=== PATIENT | male | born 1960 | race Caucasian/White ===

== ENCOUNTER 2016-06-15 12:07 | Inpatient (IN) | payer MEDICARE, OTHER ==
--- NOTE | 2016-06-15 12:38 | ED Physician Chart ---
Chief Complaint/HPI - Patient Information Date Seen:: 06/15/16 Time Seen:: 12:30 Chief Complaint:: New onset of delusion and aggressive behavior. History of Present Illness:: Brought in by ambulance from nursing facility because pt has been noticed to have delusion and aggressive behavior towards staff. Pt feels well and denies any bodily pain or discomfort. Pt has flight of ideas and delusional thoughts. He is not fully cooperative; thus, H & P are limited. Allergies:: Allergies Allergy/AdvReac Type Severity Reaction Status Date / Time No Known Allergies Allergy Verified 06/15/16 12:33 Vitals:: see Nurse Note. Historian:: Patient, Medical Records (from transferring facility.) Family MD/PCP:: Dr. Rob/Dr. Mann LMP:: N/A Review:: Nurse's Note Reviewed, Transfer documents Reviewed Review of Systems - Review of Systems General/Constitutional: Other (Pt does not cooperate for ROS.) Past Medical History - Past Medical History Past Medical History: HTN, Dyslipidemia, PUD/GERD Family History: Other (Pt does not cooperate to provide reliable info on FHx.) Social History: Care Facility, Other (Pt does not cooperate to provide reliable info on SHx.) Surgical History: other (Intestinal ) Psychiatricy History: Schizophrenia, Bipolar Medication: Reviewed Physical Exam - Physical Examination General/Constitutional: Awake, Well-developed, well-nourished, Alert, No distress, Non-toxic appearing, Ambulatory Other Gen/Cons comments:: Breathes comfortably, speaks clearly with flights of ideas. Pt is not in any physical distress. Head: Atraumatic Eyes: Lids, conjuctiva normal, PERRL, EOMI Skin: No ecchymosis, Well hydrated, No lymphadenopathy Other Skin comments:: see also Abdominal exam below. ENMT: External ears, nose nl, TM canals nl, Nasal exam nl, Lips, teeth, gums nl , Oropharynx nl, Tonsils nl Neck: Nontender, Full ROM w/o pain, No JVD, No nuchal rigidity, No mass, No stridor Respiratory: Nl effort/Exclusion, Clear to Auscultation, No Wheeze/Rhonchi/Rales Cardio Vascular: RRR, No murmur, gallop, rubs, NL S1 S2 GI: No tenderness/rebounding/guarding, No organomegaly, No hernia, Normal BS's, Nondistended, No mass/bruits, No McBurney tenderness Other GI comments:: Abdomen is obese but soft. There is a well healed longitudinal surgical scar at midline extending from upper to lower abdomen. Erythema with warmth noticed extending bilaterally about 5 cm. No crepitus. No open wound or exudate. : No CVA tenderness Extremities: No edema Neuro/Psych: Alert/oriented (knows his name, that he is in hospital and it is May 2016. Spontaneous movements noticed in all 4 extremities. Pt does not cooperate for full neurological exam.), DTR's symmetric, Normal sensory exam, Normal motor strength, Judgement/insight normal, Mood normal, Normal gait, No focal deficits ED Septic Shock - . Is Septic Shock (SBP<90, OR Lactate>4 mmol\L) present?: No Reassessment (Disposition) - Reassessment Reassessment:: 1300 Pt has been uncooperative. He refused IV, blood draw, and antibiotic. Dr. Dasilva called and discussed with me at about 1255. He will admit pt to [facility] under his care. He will have work up and treatment done in the [facility]. - Diagnosis Diagnosis:: Cellulitis in abdomen. H/O Bipolar disorder and schizoaffective disorder with delusion and aggressive behavior. - Patient Disposition Admitted to:: Med/Surg Admitting Medical Physician:: Michael Dasilva Time:: 13:05 Condition at Disposition:: Stable
[2016-06-15 15:21] LABS: URINE BILIRUBIN NEGATIVE (NEGATIVE); URINE BLOOD NEGATIVE (NEGATIVE); URINE COLOR STRAW; URINE GLUCOSE (UA) NEGATIVE (NEGATIVE); URINE KETONE NEGATIVE (NEGATIVE); URINE PROTEIN NEGATIVE (NEGATIVE); URINE UROBILINOGEN 0.2 E.U./dL (0.2 - 1.0)
[2016-06-15 15:22] LABS: URINE BACTERIA NONE SEEN /hpf (NONE SEEN); URINE EPITHELIAL CELLS NONE SEEN /lpf (FEW); URINE RBC NONE SEEN /hpf (0-5); URINE WBC NONE SEEN /hpf (0-5)
[2016-06-15] MEDS ORDERED: Vancomycin HCl 1.5 GM in Sodium Chloride 0.9% 500 ML IV ONE (18:00)
[2016-06-15] MEDS ORDERED: HALOPERIDOL DECANOATE IM SCH (20:15)
[2016-06-15] MEDS ORDERED: Levofloxacin 500mg/100mL Premix Bag IV ONE (20:45)
[2016-06-16] MEDS ORDERED: Non-Formulary Item 1 EA (Amino Acids/Protein Hydrolys [Pro-Stat Awc Liquid] 30 ML) PO SCH (09:00)
[2016-06-16] MEDS: Aspirin 81mg Chewable Tab PO SCH (11:26)
[2016-06-16] MEDS: Multivitamin w/ Minerals Tab PO SCH (11:27)
--- NOTE | 2016-06-16 13:06 | Internal Medicine Prog Note ---
Internal Medicine Subjective - Subjective Service Date: 06/16/16 ([facility] [id number]) Internal Medicine Objective - Results Recent Labs: Laboratory Last Values Urine Source CLEAN C 06/15/16 14:35 Urine Color STRAW 06/15/16 14:35 Urine Clarity CLEAR (CLEAR) 06/15/16 14:35 Urine pH 7.0 06/15/16 14:35 Ur Specific [place] 1.015 (1.005-1.030) 06/15/16 14:35 Urine Protein NEGATIVE mg/dL (NEGATIVE) 06/15/16 14:35 Urine Glucose (UA) NEGATIVE mg/dL (NEGATIVE) 06/15/16 14:35 Urine Ketones NEGATIVE mg/dL (NEGATIVE) 06/15/16 14:35 Urine Blood NEGATIVE (NEGATIVE) 06/15/16 14:35 Urine Nitrate NEGATIVE (NEGATIVE) 06/15/16 14:35 Urine Bilirubin NEGATIVE (NEGATIVE) 06/15/16 14:35 Urine Urobilinogen 0.2 E.U./dL (0.2 - 1.0) 06/15/16 14:35 Ur Leukocyte Esterase NEGATIVE (NEGATIVE) 06/15/16 14:35 Urine RBC NONE SEEN /hpf (0-5) 06/15/16 14:35 Urine WBC NONE SEEN /hpf (0-5) 06/15/16 14:35 Ur Epithelial Cells NONE SEEN /lpf (FEW) 06/15/16 14:35 Urine Bacteria NONE SEEN /hpf (NONE SEEN) 06/15/16 14:35 - Physical Exam Vitals and I&O: Vital Signs Temp 98 F 06/16/16 08:00 Pulse 85 06/16/16 08:00 Resp 18 06/16/16 08:00 BP 129/82 06/16/16 08:00 Pulse Ox 100 06/16/16 08:00 Intake & Output 06/15/16 06/16/16 06/16/16 18:59 06:59 18:59 Intake Total 600 920 Balance 600 920 Intake: Oral 600 920 Other: # Voids 4 4 # Bowel Movements 1 Active Medications: Current Medications Acetaminophen (Tylenol) 650 mg PO Q6H PRN PRN Reason: mild pain Stop: 08/14/16 20:02 Ascorbic Acid (Vitamin C) 500 mg PO DAILY PREM Stop: 08/15/16 08:59 Last Admin: 06/16/16 11:26 Dose: Not Given Aspirin (Aspirin Chewable) 81 mg PO DAILY [facility] Stop: 08/15/16 08:59 Last Admin: 06/16/16 11:26 Dose: Not Given Atorvastatin Calcium (Lipitor) 10 mg PO HS PREM PRN Reason: Protocol Stop: 08/14/16 20:59 Benzonatate (Tessalon) 200 mg PO TID PRN PRN Reason: Cough Benztropine Mesylate (Cogentin) 0.5 mg PO BID [facility] Stop: 08/15/16 08:59 Last Admin: 06/16/16 11:26 Dose: Not Given Carvedilol (Coreg) 3.125 mg PO BID PREM Stop: 08/15/16 08:59 Last Admin: 06/16/16 11:26 Dose: Not Given Divalproex Sodium (Depakote Dr) 500 mg PO BID PREM PRN Reason: Protocol Stop: 08/15/16 08:59 Last Admin: 06/16/16 11:27 Dose: Not Given Docusate Sodium (Colace) 100 mg PO DAILY [facility] Stop: 08/15/16 08:59 Last Admin: 06/16/16 11:27 Dose: Not Given Haloperidol (Haldol) 5 mg PO BID PREM PRN Reason: Protocol Stop: 08/15/16 08:59 Levofloxacin (Levaquin Pb) 500 mg in 100 mls @ 100 mls/hr IV Q24HR [facility] Stop: 08/15/16 20:59 Miscellaneous (Vancomycin Iv Per Pharmacy) 1 ea MC PRN [facility] Stop: 08/14/16 13:14 Miscellaneous (Haloperidol Decanoate [Haloperidol Decanoate]) 1 ml IM QMONTH [facility] Stop: 08/14/16 20:14 Miscellaneous (Amino Acids/Protein Hydrolys [Pro-Stat Awc Liquid]) 30 ml PO DAILY [facility] Stop: 08/15/16 08:59 Nitroglycerin (Nitrostat) 0.4 mg SL Q5MIN PRN PRN Reason: Chest Pain Stop: 08/14/16 20:02 Zinc Sulfate (Zinc Sulfate) 220 mg PO DAILY [facility] Stop: 08/15/16 08:59 Last Admin: 06/16/16 11:27 Dose: Not Given Internal Medicine Assmt/Plan - Assessment Assessment: ABDOMINAL CELLULITIS HTN DYSLIPIDEMIA GERD
[2016-06-16] MEDS ORDERED: Haloperidol Lactate 5 mg/mL 1mL Vial IM ONE (14:00)
--- NOTE | 2016-06-16 16:53 | History & Physical ---
CHIEF COMPLAINT: Aggressive behavior, abdominal wound infection and agitation. HISTORY OF PRESENT ILLNESS: This is a 56-year-old male who is a resident of [facility] who is brought here to [facility] for reports of abdominal wound infection and agitation. The patient did not have any fevers at the [facility]. The patient is a very poor historian. PAST MEDICAL HISTORY: Hypertension, dyslipidemia, GERD. SOCIAL HISTORY: The patient resides at [facility], requiring 24-hour nursing care. ALLERGIES: No known allergies. PAST SURGICAL HISTORY: Intestinal bypass. MEDICATIONS: Please see medication reconciliation sheet. REVIEW OF SYSTEMS: Unable to obtain, patient is confused. PHYSICAL EXAMINATION: GENERAL: The patient is well developed and well nourished, confused in no apparent distress. VITAL SIGNS: Temperature 98, heart rate 85, blood pressure 129/82, respirations 18 and O2 100%. HEENT: Head normocephalic atraumatic. NECK: Supple. No mass. LUNGS: Clear bilateral to auscultation. HEART: Regular rate and rhythm. No murmurs or gallops. SKIN: Intact, warm and dry to touch. ABDOMEN: Soft, nontender and nondistended. Positive bowel sounds in all 4 quadrants. LABORATORY DATA: Currently attending. The patient had a urinalysis done and it was negative for any UTI. ASSESSMENT: 1. Abdominal wound infection. 2. Agitation. 3. Peptic ulcer disease. 4. Gastroesophageal reflux disease. 5. Dyslipidemia. PLAN: To be admitted to the med/surg unit. The patient will have a consultation with Dr. Mann and also wound care as well. CBC and BMP will be monitored. The patient will be kept on IV antibiotics of Levaquin and vancomycin as well. As soon as the patient is medically stable, the patient to be transferred to Geropsych Unit. JOB# [id number]
[2016-06-16] MEDS ORDERED: Levofloxacin 500mg/100mL 500 MG/100 ML BAG IV SCH (21:00)
[2016-06-16] MEDS: Atorvastatin Calcium 10 MG TAB PO SCH ×2 (21:05→21:32)
--- NOTE | 2016-06-17 02:23 | Consultation ---
The patient was seen, chart reviewed and discussed with staff. HISTORY OF PRESENT ILLNESS: The patient is a 56-year-old male with a history of schizophrenia, known to myself from prior treatment at this facility, was sent for increased confusion, agitation, changes in mental status, is currently on medical floor. The patient has been refusing care for no apparent reason. The patient is confused. He is saying he is 6-year-old and having some anger outbursts. The patient did not give a reason why is not taking medications. PAST PSYCHIATRIC HISTORY: Multiple psychiatric hospitalizations, chronic history of mental illness. PAST MEDICAL HISTORY: As per H and P. The patient's ____ also ER record was reviewed. Cellulitis in abdomen. MENTAL STATUS EXAMINATION: The patient was restless, paranoid, suspicious, internally preoccupied, speech is pressured. He is oriented to person, knew he was in the hospital. Knew the date, but his insight is very poor. Thought he was 6 years old. No suicidal or homicidal thoughts, but the patient is highly agitated. ASSESSMENT: Schizoaffective disorder, psychotic phase. PLAN: We will encourage the patient to comply with treatment and with his medications. The patient is receiving Haldol Decanoate and also he is on Haldol 5 twice a day and Depakote 500 mg twice a day. We will monitor closely. The patient will benefit from psychiatric hospitalization given the severity of his mental illness and his delusions. Thank you for the consultation. [facility]# [id number]
[2016-06-17] MEDS: Aspirin 81mg Chewable Tab PO SCH (09:07)
[2016-06-17] MEDS: Multivitamin w/ Minerals Tab PO SCH (09:09)
--- NOTE | 2016-06-17 13:21 | Internal Medicine Prog Note ---
Internal Medicine Subjective - Subjective Patient seen and examined:: with staff, chart reviewed Patient is:: awake, verbal, interactive, in bed, denies CP Patient Complaints of:: congestion Per staff patient is:: noncompliant, confused Internal Medicine Objective - Results Recent Labs: Laboratory Last Values Urine Source CLEAN C 06/15/16 14:35 Urine Color STRAW 06/15/16 14:35 Urine Clarity CLEAR (CLEAR) 06/15/16 14:35 Urine pH 7.0 06/15/16 14:35 Ur Specific [place] 1.015 (1.005-1.030) 06/15/16 14:35 Urine Protein NEGATIVE mg/dL (NEGATIVE) 06/15/16 14:35 Urine Glucose (UA) NEGATIVE mg/dL (NEGATIVE) 06/15/16 14:35 Urine Ketones NEGATIVE mg/dL (NEGATIVE) 06/15/16 14:35 Urine Blood NEGATIVE (NEGATIVE) 06/15/16 14:35 Urine Nitrate NEGATIVE (NEGATIVE) 06/15/16 14:35 Urine Bilirubin NEGATIVE (NEGATIVE) 06/15/16 14:35 Urine Urobilinogen 0.2 E.U./dL (0.2 - 1.0) 06/15/16 14:35 Ur Leukocyte Esterase NEGATIVE (NEGATIVE) 06/15/16 14:35 Urine RBC NONE SEEN /hpf (0-5) 06/15/16 14:35 Urine WBC NONE SEEN /hpf (0-5) 06/15/16 14:35 Ur Epithelial Cells NONE SEEN /lpf (FEW) 06/15/16 14:35 Urine Bacteria NONE SEEN /hpf (NONE SEEN) 06/15/16 14:35 - Physical Exam Vitals and I&O: Vital Signs Temp 98.7 F 06/17/16 08:00 Pulse 79 06/17/16 09:07 Resp 19 06/17/16 08:00 BP 130/90 06/17/16 09:07 Pulse Ox 98 06/17/16 08:00 Active Medications: Current Medications Acetaminophen (Tylenol) 650 mg PO Q6H PRN PRN Reason: mild pain Stop: 08/14/16 20:02 Ascorbic Acid (Vitamin C) 500 mg PO DAILY [facility] Stop: 08/15/16 08:59 Last Admin: 06/17/16 09:07 Dose: Not Given Aspirin (Aspirin Chewable) 81 mg PO DAILY [facility] Stop: 08/15/16 08:59 Last Admin: 06/17/16 09:07 Dose: Not Given Atorvastatin Calcium (Lipitor) 10 mg PO HS PREM PRN Reason: Protocol Stop: 08/14/16 20:59 Last Admin: 06/16/16 21:32 Dose: Not Given Benzonatate (Tessalon) 200 mg PO TID PRN PRN Reason: Cough Benztropine Mesylate (Cogentin) 0.5 mg PO BID [facility] Stop: 08/15/16 08:59 Last Admin: 06/17/16 09:07 Dose: Not Given Carvedilol (Coreg) 3.125 mg PO BID [facility] Stop: 08/15/16 08:59 Last Admin: 06/17/16 09:07 Dose: Not Given Divalproex Sodium (Depakote Dr) 500 mg PO BID PREM PRN Reason: Protocol Stop: 08/15/16 08:59 Last Admin: 06/17/16 09:08 Dose: Not Given Docusate Sodium (Colace) 100 mg PO DAILY [facility] Stop: 08/15/16 08:59 Last Admin: 06/17/16 09:09 Dose: Not Given Haloperidol (Haldol) 5 mg PO BID PREM PRN Reason: Protocol Stop: 08/15/16 08:59 Levofloxacin (Levaquin Pb) 500 mg in 100 mls @ 100 mls/hr IV Q24HR [facility] Stop: 08/15/16 20:59 Lorazepam (Ativan) 1 mg PO Q4HR PRN; Protocol PRN Reason: Anxiety Stop: 08/15/16 13:29 Miscellaneous (Vancomycin Iv Per Pharmacy) 1 ea MC PRN PREM Stop: 08/14/16 13:14 Miscellaneous (Haloperidol Decanoate [Haloperidol Decanoate]) 1 ml IM QMONTH [facility] Stop: 08/14/16 20:14 Nitroglycerin (Nitrostat) 0.4 mg SL Q5MIN PRN PRN Reason: Chest Pain Stop: 08/14/16 20:02 Zinc Sulfate (Zinc Sulfate) 220 mg PO DAILY [facility] Stop: 08/15/16 08:59 Last Admin: 06/17/16 09:09 Dose: Not Given General: congested, demented HEENT: NC/AT, PERRLA Neck: Supple, No JVD Lungs: congested Cardiovascular: RRR, Normal S1, Normal S2 Abdomen: soft non-tender, globular, other (large hernia w redness) Extremities: excoriation, contracture Neurological: no change Internal Medicine Assmt/Plan - Assessment Assessment: ABDOMINAL CELLULITIS HTN DYSLIPIDEMIA GERD sad - Plan Plan: cont on iv abx check labs adjust psych meds kerri rn and w dr vieira
[2016-06-17] MEDS: Atorvastatin Calcium 10 MG TAB PO SCH (21:30)
[2016-06-18] MEDS: Aspirin 81mg Chewable Tab PO SCH (10:57)
[2016-06-18] MEDS: Multivitamin w/ Minerals Tab PO SCH (10:58)
--- NOTE | 2016-06-19 05:21 | Progress Notes ---
SUBJECTIVE: The patient was seen, discussed with staff. Still paranoid at times, some delusional thoughts and hyper-advent thoughts; however, he has been eating well and sleeping well. The patient has not been suicidal or homicidal, has not been aggressive. The patient was educated ____ and encouraged to comply with medications ____ recommendations. The patient said he does not like Haldol. PLAN: We will change Haldol to Zyprexa 10 mg p.o. at bedtime. Monitor condition closely. JOB# [id number]
--- NOTE | 2016-07-09 01:30 | Discharge Summary ---
FINAL DIAGNOSES: 1. Abdominal wound infection. 2. Agitation. 3. Peptic ulcer disease. 4. Gastroesophageal reflux disease. 5. Dyslipidemia. HISTORY OF PRESENT ILLNESS: A 56-year-old male, resident of [facility], brought to [facility] for agitation. PHYSICAL EXAMINATION: GENERAL: The patient is well developed, well nourished, in no acute distress. VITAL SIGNS: Stable. HEAD: Normocephalic, atraumatic. NECK: Supple. No mass. LUNGS: Clear. ABDOMEN: Soft, nontender, nondistended. HOSPITAL COURSE: During the hospital stay, the patient was admitted to the Med/Surg Unit. The patient had a consultation with Dr. Mann. The patient was on IV antibiotics of Levaquin and vancomycin. The patient's CBC and BMP were being monitored as well. The patient had a 1:1 sitter and also wound care nurse. The patient later then stabilized and was stable for discharge. DISCHARGE MEDICATIONS: The patient is to continue Levaquin 500 mg by mouth daily x7 days. CONDITION UPON DISCHARGE: Fair. DISPOSITION: [facility]. JOB# [id number]
== END 2016-06-18 15:00 | DRG 602 ==
LOC: ER 12:07 → MSI 12:59
PROVIDERS: ADMIT Internal Medicine; ATTEND Internal Medicine
DX: L03.311 Cellulitis of abdominal wall (principal); G93.41 Metabolic encephalopathy; F25.9 Schizoaffective disorder, unspecified; K27.9 Peptic ulcer, site unspecified, unspecified as acute or chronic, without hemorrhage or perforation; I10 Essential (primary) hypertension; F31.9 Bipolar disorder, unspecified; E78.5 Hyperlipidemia, unspecified; K21.9 Gastro-esophageal reflux disease without esophagitis; K46.9 Unspecified abdominal hernia without obstruction or gangrene; Z98.890 Other specified postprocedural states
CPT/HCPCS: 81001-TC; 96374; J1200; J1630; J1631; J1956; J2060; J3370; J7030; J7040; Z7610